=== PATIENT | male | born 1985 | race Caucasian/White ===

== ENCOUNTER 2017-04-30 17:04 | Emergency (ER) | payer SELFPAY ==
[2017-04-30] MEDS ORDERED: NORCO 7.5/325 PO ONE (18:18)
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
[2017-04-30] MEDS ORDERED: XYLOCAINE 1% 20 mL INFILTRATI ONE (18:19)
[2017-04-30] MEDS ORDERED: NACL ONE (19:08)
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
[2017-04-30] MEDS ORDERED: LET TOPICAL TP ONE (20:38)
[2017-04-30] MEDS ORDERED: BOOSTRIX IM ONE (22:17)
[2017-05-01 04:41] VITALS: BP 151/85
== END 2017-04-30 23:20 | disposition home or self-care (01) ==
LOC: ED 17:04
DX: S22.42XA Multiple fractures of ribs, left side, initial encounter for closed fracture (principal); S01.01XA Laceration without foreign body of scalp, initial encounter; Y08.89XA Assault by other specified means, initial encounter; Y93.89 Activity, other specified; Y92.89 Other specified places as the place of occurrence of the external cause; Y99.8 Other external cause status
CPT/HCPCS: 70450; 90471